=== PATIENT | male | born 1955 | race Hispanic/Latino ===

== ENCOUNTER 2018-08-29 23:41 | Emergency (ER) | payer OTHER | END 2018-08-29 23:56 | LOC: EDH 23:41 | DX: Z02.83 Encounter for blood-alcohol and blood-drug test (principal) ==

== ENCOUNTER 2018-12-27 05:50 | Day surgery (SDC) | payer OTHER ==
[2018-12-25 14:17] VITALS: BP 102/77
[2018-12-26] MEDS: CEFTRIAXONE SODIUM 1 GM IVP SCH (10:15)
[~2018-12-27] VITALS: Ht 174 cm; Wt 105.2 kg
[2018-12-27] VITALS (13 sets, daily range): BP systolic 118–148; BP diastolic 74–96
[~2018-12-27 05:50] MED LIST: TAMS-1 PO
[2018-12-27] MEDS ORDERED: LACTATED RINGERS 1000ML 1,000 ML IV ONE (06:33)
[2018-12-27] MEDS ORDERED: PROPOFOL 10 MG/ML 20ML VIAL IV ONE (07:04)
[2018-12-27] MEDS ORDERED: LIDOCAINE PF 2% 5ML ABBOJECT ONE (07:04)
[2018-12-27] MEDS ORDERED: FENTANYL CITRATE PF 50 MCG/1 ML 2ML VIAL ONE ×2 (07:05→08:12)
[2018-12-27] MEDS ORDERED: MIDAZOLAM HCL 1 MG/ML 2ML VIAL ONE (07:42)
[2018-12-27] MEDS: CEFTRIAXONE SODIUM 1 GM IVP SCH (07:45)
[2018-12-27] MEDS ORDERED: EPHEDRINE SULFATE 50 MG/ML AMPULE ONE (07:56)
[2018-12-27] MEDS ORDERED: OPIUM/BELLADONNA ALKALOIDS 1 EACH SUPP.RECT RC ONE (08:44)
[2018-12-27] MEDS ORDERED: PHENAZOPYRIDINE HCL 200 MG TABLET ONE (10:09)
== END 2018-12-27 10:40 | disposition home or self-care (01) ==
LOC: DAH 05:50
PROVIDERS: ATTEND Urology
DX: N40.1 Benign prostatic hyperplasia with lower urinary tract symptoms (principal); R35.1 Nocturia; F17.210 Nicotine dependence, cigarettes, uncomplicated; N28.81 Hypertrophy of kidney; Z98.890 Other specified postprocedural states
CPT/HCPCS: 52648; 88305; A4215; A4221; A4222; A4223; A4340; A4354; A4358; A4663; A4930; A5113; A6260; J0696; J2001; J2250; J2704; J3010 ×2; J3490; J7120 ×2

== ENCOUNTER 2021-11-19 11:01 | Emergency (ER) | payer MEDICARE, OTHER ==
[~2021-11-19] VITALS: Ht 167.6 cm; Wt 102.1 kg
[2021-11-19 11:13] VITALS: BP 129/75
[2021-11-19] MEDS ORDERED: D-ME1POW16 PO (12:26)
[2021-11-19] MEDS ORDERED: IBUP-2071 PO (12:26)
[2021-11-19] MEDS ORDERED: OSEL75 PO (12:26)
[2021-11-19] MEDS ORDERED: ACETAMINOPHEN 500 MG TABLET PO ONE (12:30)
[2021-11-19] MEDS ORDERED: OSELTAMIVIR PHOSPHATE 75 MG CAP PO SCH (12:30)
== END 2021-11-19 12:31 | disposition home or self-care (01) ==
LOC: EDH 11:01
DX: J10.1 Influenza due to other identified influenza virus with other respiratory manifestations (principal); Z20.822 Contact with and (suspected) exposure to COVID-19; I10 Essential (primary) hypertension; Z90.49 Acquired absence of other specified parts of digestive tract; Z98.890 Other specified postprocedural states
CPT/HCPCS: 99283; 87635; 87804 ×2; C9803

== ENCOUNTER 2022-08-26 14:58 | Inpatient (IN) | payer MEDICARE, OTHER ==
[~2022-08-26] VITALS: Ht 167.6 cm; Wt 111.1 kg
[~2022-08-26 14:58] MED LIST changes: +D-ME1POW16 PO; +IBUP-2071 PO; +OSEL75 PO
[2022-08-26] MEDS ORDERED: LACTATED RINGERS IV ONE (15:30)
[2022-08-26 15:40] LABS: BILIRUBIN,URINE NEGATIVE (NEGATIVE); COLOR,URINE YELLOW (YELLOW); GLUCOSE, URINE (UA) NEGATIVE (NEGATIVE); KETONES,URINE NEGATIVE (NEGATIVE); LEUKOCYTE ESTERASE ,URINE 500 Leu/uL (NEGATIVE); NITRATE,URINE NEGATIVE (NEGATIVE); OCCULT BLOOD,URINE LARGE (NEGATIVE); PH,URINE 5.5 (5.0-8.0); PROTEIN,URINE 300 mg/dL (NEGATIVE); UROBILINOGEN,URINE 3 mg/dL (0.2-1.0)
[2022-08-26 15:44] LABS: APPEARANCE,URINE CLOUDY (CLEAR)
[2022-08-26 15:49] LABS: BACTERIA,URINE MOD /HPF (None Seen); MUCUS,URINE MANY LPF (None Seen); RBC,URINE TNTC /HPF (0-1); SQUAMOUS EPITHELIAL CELL,UR FEW /HPF (0-2); WBC,URINE TNTC /HPF (0-1)
[2022-08-26 15:52] LABS: BASOPHILS % (AUTO) 0.6 % (0.0-5.0); EOSINOPHILS % (AUTO) 3.4 % (0.0-8.0); LYMPHOCYTES % (AUTO) 16.1 % (21.0-51.0); MEAN CORPUSCULAR HGB CONC 33.1 g/dL (32.0-36.0); MEAN CORPUSCULAR VOLUME 84.6 fL (79-99); MONOCYTES % (AUTO) 8.6 % (3.0-13.0); NEUTROPHILS % (AUTO) 69.8 % (40.0-77.0); PLATELET COUNT (AUTO) 230 K/uL (130-400); RED BLOOD CELL COUNT(AUTO) 5.32 MIL/uL (4.50-6.20); RED CELL DISTRIBUTION WIDTH 13.5 % (11.0-15.5); WHITE BLOOD COUNT (AUTO) 14.1 K/uL (4.8-10.8)
[2022-08-26 16:03] LABS: CREATININE 2.4 mg/dL (0.5-1.5); POTASSIUM 4.3 mmol/L (3.5-5.1)
[2022-08-26 16:12] LABS: MAGNESIUM 1.9 mg/dL (1.80-2.40); TOTAL PROTEIN, SERUM 7.6 g/dL (6.0-8.3)
[2022-08-26] MEDS ORDERED: CEFTRIAXONE 1G VIAL IVPB ONE (17:30)
[2022-08-26] MEDS ORDERED: ONDANSETRON 4MG INJ IVP PRN (20:00)
[2022-08-26] MEDS: CEFTRIAXONE 1G VIAL IVPB SCH (20:00)
[2022-08-26] MEDS ORDERED: ACETAMINOPHEN 325 MG TAB PO PRN (20:00)
[2022-08-26] MEDS: HEPARIN 5,000 UNIT VIAL SQ SCH (20:35)
[2022-08-26] MEDS: 0.9%NACL 1000ML 1,000 ML IV SCH (20:35)
[2022-08-26] MEDS ORDERED: ROSU5TAB12 PO (21:41)
[2022-08-26] MEDS ORDERED: IMIP50TA6 PO (21:42)
[2022-08-26] MEDS ORDERED: AMLO1CAP6 PO (21:43)
[2022-08-26 22:30] VITALS: O2SAT 99
[2022-08-26] MEDS ORDERED: IBUP-2077 PO (22:43)
[2022-08-26 23:00] VITALS: BP 124/75; PULSE 87; RESP 19
[2022-08-27] VITALS (7 sets, daily range): BP systolic 93–114; BP diastolic 70–76; PULSE 61–90; RESP 16–24; O2SAT 95
[2022-08-27 04:13] LABS: BASOPHILS % (AUTO) 0.6 % (0.0-5.0); EOSINOPHILS % (AUTO) 6.5 % (0.0-8.0); HEMATOCRIT 41.1 % (42-54); LYMPHOCYTES % (AUTO) 23.1 % (21.0-51.0); MEAN CORPUSCULAR HEMOGLOBIN 28.1 pg (27.0-33.0); MEAN CORPUSCULAR HGB CONC 32.4 g/dL (32.0-36.0); MEAN CORPUSCULAR VOLUME 86.7 fL (79-99); MONOCYTES % (AUTO) 9.2 % (3.0-13.0); NEUTROPHILS % (AUTO) 59.8 % (40.0-77.0); PLATELET COUNT (AUTO) 190 K/uL (130-400); RED BLOOD CELL COUNT(AUTO) 4.74 MIL/uL (4.50-6.20); RED CELL DISTRIBUTION WIDTH 13.5 % (11.0-15.5); WHITE BLOOD COUNT (AUTO) 10.5 K/uL (4.8-10.8)
[2022-08-27 04:28] LABS: CREATININE 1.3 mg/dL (0.5-1.5); MAGNESIUM 1.8 mg/dL (1.80-2.40); POTASSIUM 4.1 mmol/L (3.5-5.1)
[2022-08-27] MEDS: HEPARIN 5,000 UNIT VIAL SQ SCH ×2 (09:18→20:35)
[2022-08-27] MEDS: 0.9%NACL 1000ML 1,000 ML IV SCH ×2 (12:13→22:40)
[2022-08-27] MEDS: CEFTRIAXONE 1G VIAL IVPB SCH (20:24)
[2022-08-27] MEDS: ATORVASTATIN 20 MG TABLET PO SCH (20:24)
[2022-08-27] MEDS: AMITRIPTYLINE 25 MG TABLET PO SCH (20:24)
[2022-08-27] MEDS: AMLODIPINE-BENAZEPRIL 5-20 MG PO SCH (20:49)
[2022-08-27] MEDS ORDERED: NON-FORMULARY MEDICATION 1 EACH (Rosuvastatin Calcium 5 MG) PO SCH (21:00)
[2022-08-28] VITALS (7 sets, daily range): BP systolic 111–135; BP diastolic 70–79; PULSE 77–96; RESP 18–22; O2SAT 94–100
[2022-08-28] MEDS: 0.9%NACL 1000ML 1,000 ML IV SCH (06:03)
[2022-08-28] MEDS: HEPARIN 5,000 UNIT VIAL SQ SCH ×2 (09:27→20:36)
[2022-08-28] MEDS: CEFTRIAXONE 1G VIAL IVPB SCH (20:35)
[2022-08-28] MEDS: AMLODIPINE-BENAZEPRIL 5-20 MG PO SCH (20:36)
[2022-08-28] MEDS: AMITRIPTYLINE 25 MG TABLET PO SCH (20:36)
[2022-08-28] MEDS: ATORVASTATIN 20 MG TABLET PO SCH (20:37)
[2022-08-29 04:00] VITALS: BP 121/76; PULSE 78; RESP 19
[2022-08-29 05:17] LABS: HEMATOCRIT 39.9 % (42-54); MEAN CORPUSCULAR HGB CONC 32.8 g/dL (32.0-36.0); MEAN CORPUSCULAR VOLUME 85.3 fL (79-99); RED BLOOD CELL COUNT(AUTO) 4.68 MIL/uL (4.50-6.20); RED CELL DISTRIBUTION WIDTH 13.4 % (11.0-15.5); WHITE BLOOD COUNT (AUTO) 7.4 K/uL (4.8-10.8)
[2022-08-29 05:32] LABS: CREATININE 0.9 mg/dL (0.5-1.5); POTASSIUM 4.3 mmol/L (3.5-5.1)
[2022-08-29 07:50] VITALS: O2SAT 96
[2022-08-29 07:52] VITALS: BP 140/75; PULSE 85; RESP 18
[2022-08-29] MEDS: HEPARIN 5,000 UNIT VIAL SQ SCH ×2 (07:58→20:05)
[2022-08-29 10:27] LABS: INR 0.93 (0.85-1.15); PROTHROMBIN TIME 10.7 SEC (9.6-11.6)
[2022-08-29 12:00] VITALS: BP 123/78; PULSE 80; RESP 18
[2022-08-29] MEDS: 0.9%NACL 1000ML 1,000 ML IV SCH ×2 (14:40→20:04)
[2022-08-29 16:00] VITALS: BP 127/79; PULSE 87; RESP 18
[2022-08-29 20:00] VITALS: BP 126/71; PULSE 77; RESP 19; O2SAT 95
[2022-08-29] MEDS: AMLODIPINE-BENAZEPRIL 5-20 MG PO SCH (20:04)
[2022-08-29] MEDS: AMITRIPTYLINE 25 MG TABLET PO SCH (20:04)
[2022-08-29] MEDS: CEFTRIAXONE 1G VIAL IVPB SCH (20:04)
[2022-08-29] MEDS: ATORVASTATIN 20 MG TABLET PO SCH (20:04)
[2022-08-30] VITALS: BP 134/80; PULSE 77; RESP 19
[2022-08-30 04:00] VITALS: BP 135/82; PULSE 72; RESP 19
[2022-08-30 07:57] VITALS: BP 139/95; PULSE 88; RESP 18
[2022-08-30 08:30] VITALS: O2SAT 96
[2022-08-30] MEDS: HEPARIN 5,000 UNIT VIAL SQ SCH (09:13)
[2022-08-30 11:31] VITALS: BP 121/80; PULSE 78; RESP 18
== END 2022-08-30 16:30 | disposition home or self-care (01) | DRG 683 ==
LOC: EDH 14:58 → EDHIP 19:52 → 3CH 22:22
PROVIDERS: ADMIT Internal Medicine Infectious Disease; ATTEND Internal Medicine Infectious Disease
DX: N17.9 Acute kidney failure, unspecified (principal); N30.00 Acute cystitis without hematuria; B96.89 Other specified bacterial agents as the cause of diseases classified elsewhere; E86.0 Dehydration; E66.9 Obesity, unspecified; I10 Essential (primary) hypertension; Z90.49 Acquired absence of other specified parts of digestive tract; Z68.39 Body mass index [BMI] 39.0-39.9, adult; Z79.899 Other long term (current) drug therapy
CPT/HCPCS: 36415; 71045; 74176; 80048; 80053; 81001; 82550; 83605; 83735; 83874; 84484; 85025; 85027; 85610; 87077; 87088; 87186; 93005; G0378; J0696; J1644; J7030

== ENCOUNTER 2023-10-23 08:04 | Emergency (ER) | payer MEDICARE, OTHER ==
[~2023-10-23] VITALS: Ht 170.2 cm; Wt 123.8 kg
[~2023-10-23 08:04] MED LIST changes: +AMLO1CAP6 PO; +BENZ-226 PO; -D-ME1POW16 PO; -OSEL75 PO; +ROSU5TAB43 PO; -TAMS-1 PO
[2023-10-23 08:31] LABS: BASOPHILS # (AUTO) 0.06 K/uL (0.00-0.20); BASOPHILS % (AUTO) 0.5 % (0.0-5.0); EOSINOPHILS # (AUTO) 0.11 K/uL (0.00-0.70); HEMATOCRIT 47.9 % (42-54); IMMATURE GRANULOCYTE ABSOLUTE 0.22 K/uL (0-1); LYMPHOCYTES # (AUTO) 1.8 K/uL (1.0-4.8); LYMPHOCYTES % (AUTO) 16.8 % (21.0-51.0); MEAN CORPUSCULAR HEMOGLOBIN 28.9 pg (27.0-33.0); MEAN CORPUSCULAR VOLUME 87.6 fL (79-99); MONOCYTES # (AUTO) 0.7 K/uL (0.1-1.0); NEUTROPHILS % (AUTO) 73.7 % (40.0-77.0); PLATELET COUNT (AUTO) 212 K/uL (130-400); RED BLOOD CELL COUNT(AUTO) 5.47 MIL/uL (4.50-6.20); RED CELL DISTRIBUTION WIDTH 15.2 % (11.0-15.5); WHITE BLOOD COUNT (AUTO) 10.9 K/uL (4.8-10.8)
[2023-10-23 08:40] LABS: CREATININE 1.1 mg/dL (0.5-1.3); POTASSIUM 4.5 mmol/L (3.5-5.1)
[2023-10-23 08:44] LABS: ALBUMIN 3.7 g/dL (3.5-5.0); BILIRUBIN,TOTAL 0.4 mg/dL (0.2-1.0); TOTAL PROTEIN, SERUM 7.7 g/dL (6.0-8.3)
[2023-10-23 08:53] LABS: APPEARANCE,URINE CLEAR (CLEAR); BILIRUBIN,URINE NEGATIVE (NEGATIVE); COLOR,URINE LIGHT-YELLOW (YELLOW); GLUCOSE, URINE (UA) NEGATIVE (NEGATIVE); KETONES,URINE NEGATIVE (NEGATIVE); LEUKOCYTE ESTERASE ,URINE NEGATIVE Leu/uL (NEGATIVE); NITRATE,URINE NEGATIVE (NEGATIVE); OCCULT BLOOD,URINE NEGATIVE (NEGATIVE); PH,URINE 5.5 (5.0-8.0); PROTEIN,URINE 10 mg/dL (NEGATIVE); UROBILINOGEN,URINE 0.2 mg/dL (0.2-1.0)
[2023-10-23 08:54] LABS: ADD UA MICROSCOPIC YES
[2023-10-23 09:06] LABS: MUCUS,URINE RARE LPF (None Seen); SQUAMOUS EPITHELIAL CELL,UR RARE /HPF (0-2)
[2023-10-23] MEDS: MAGNESIUM HYDROXIDE 30 ML/UDCUP PO ONE (09:22)
[2023-10-23] MEDS: BisaCODYL 5 MG TABLET.DR PO ONE (09:22)
[2023-10-23 10:03] VITALS: BP 118/75; PULSE 69; RESP 20; TEMP 97.5; O2SAT 96
[2023-10-23] MEDS ORDERED: LACT10SO9 PO (11:13)
[2023-10-23] MEDS ORDERED: PSYL3.4P5 PO (11:13)
== END 2023-10-23 11:19 | disposition home or self-care (01) ==
LOC: EDH 08:04
DX: K59.00 Constipation, unspecified (principal); E66.9 Obesity, unspecified; E78.00 Pure hypercholesterolemia, unspecified; I10 Essential (primary) hypertension; F10.10 Alcohol abuse, uncomplicated; F17.200 Nicotine dependence, unspecified, uncomplicated; Z79.899 Other long term (current) drug therapy; Z90.49 Acquired absence of other specified parts of digestive tract; Z98.890 Other specified postprocedural states
CPT/HCPCS: 36415; 80053; 81001; 83690; 85025

== ENCOUNTER 2024-03-30 21:29 | Emergency (ER) | payer MEDICARE, OTHER ==
[~2024-03-30] VITALS: Ht 167.6 cm; Wt 127.0 kg
[~2024-03-30 21:29] MED LIST changes: +LACT10SO9 PO; +PSYL3.4P5 PO; -ROSU5TAB43 PO; +ROSU5TAB51 PO
[2024-03-30] MEDS: ketOROlac 60 MG VIAL (30MG/ML) IM ONE (21:56)
[2024-03-30] MEDS: dexaMETHasone SOD PHOSPHATE 4 MG/ML 1ML VIAL IM ONE (21:56)
--- NOTE | 2024-03-30 22:05 | ERN ---
ED Note History of Present Illness Stated Complaint: RT KNEE PAIN Chief Complaint: Knee Injury/Swelling Time Seen by MD: 21:34 Time Seen by Midlevel: 21:38 Dictation: PATIENT IS A 68-YEAR-OLD MALE COMING IN TODAY WITH COMPLAINTS OF RIGHT KNEE PAIN HE HAS HAD FOR 15 YEARS THAT HAS GOTTEN PROGRESSIVELY WORSE. HE SAID HE WENT TO A DOCTOR YEARS AGO AND WAS TOLD THAT HE WAS TOO YOUNG TO HAVE ARTIFICIAL KNEES PUT IN. HE STATES WHEN HE SEES HIS PRIMARY CARE DOCTOR, HE WILL PRESCRIBED MEDICATIONS HOWEVER HE HAS NEVER HAD ANY DEFINITIVE TREATMENT. HE DID SHOW ME THAT HE HAS AN APPOINTMENT MADE WITH /ORTHOPEDIC SURGEON AT [facility] IN [place] ON SUNDAY. HE HAS HAD NO FEVER NO CHILLS NO NAUSEA VOMITING. HE STATES HE IS SEEKING PAIN MANAGEMENT. 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 Allergies: Coded Allergies: No Known Drug Allergies (Verified Allergy, Unknown, 12/26/18) adhesive tape (Unverified Allergy, Unknown, 08/26/22) BLISTERS Home Meds Active Scripts Lactulose (Lactulose) 20 Gram/30 Ml Solution, 20 GM PO DAILYDINNER for constipation, #150 ML Prov:MARIBELL SHEPARD MD 10/23/23 Psyllium Husk/Aspartame (Metamucil Fiber Singles Packet) 3.4 Gram Powd.pack, 3.4 GM PO DAILY, #300 GM Prov:MARIBELL SHEPARD MD 10/23/23 Ibuprofen (Ibuprofen) 800 Mg Tablet, 800 MG PO TIDP PRN for PAIN, #60 TAB Prov:KEY FREDERICK 11/19/21 Reported Medications Benzonatate (Benzonatate) 100 Mg Capsule, 100 MG PO TID PRN for COUGH, CAP 05/12/23 Amlodipine Besylate/Benazepril (Lotrel 5-20 mg Capsule) 1 Each Capsule, 1 EACH PO PM, CAP 08/26/22 Rosuvastatin Calcium (Rosuvastatin Calcium) 5 Mg Tablet, 5 MG PO PM, TAB 08/26/22 Past Medical History Past Medical History: High Cholesterol, Hypertension, Other (DEGENERATIVE JOINT DISEASE BILATERAL KNEE) Additional Past Medical Hx: Obesity Surgical History: Cholecystectomy, Other Surgical History Other: ABD EXPLOATORY SX, BACK SX; CBD stent placement, RT SHOULDER, RT KNEE X 2 Family History: Negative Social History: Smokers, ETOH, Lives with family RN Note Reviewed/Agreed w/PFSH: Yes Review of System Dictation CONSTITUTIONAL: NEGATIVE EXCEPT FOR HPI HEAD/FACE: NEGATIVE EXCEPT FOR HPI EENT: NEGATIVE EXCEPT FOR HPI RESPIRATORY: NEGATIVE EXCEPT FOR HPI GASTROINTESTINAL/ABDOMINAL: NEGATIVE EXCEPT FOR HPI GENITOURINARY: NEGATIVE EXCEPT FOR HPI MUSCULOSKELETAL: NEGATIVE EXCEPT FOR HPI BILATERAL KNEE PAIN GREATER ON THE RI GHT INTEGUMENTARY: NEGATIVE EXCEPT FOR HPI NEUROLOGICAL/PSYCH: NEGATIVE EXCEPT FOR HPI HEMATOLOGIC/LYMPHATIC: NEGATIVE EXCEPT FOR HPI ALL SYSTEMS NEGATIVE, EXCEPT NOTED ABOVE. 13 POINT REVIEW OF SYSTEMS ASSESSED AND ALL NEGATIVE EXCEPT FOR ABOVE. Initial Vital Sign VS Vital Signs Date Time Temp Pulse Resp B/P (MAP) Pulse Ox O2 Delivery O2 Flow Rate FiO2 03/30/24 21:31 98.1 80 18 135/94 97 Room Air 03/30/24 21:37 0 21 Physical Exam Dictation VITAL SIGNS REVIEWED GENERAL APPEARANCE: ALERT, ORIENTED X 3, MODERATE ACUTE DISTRESS, WELL DEVELOPED, NOURISHED. MORBID OBESE HEAD AND FACE: NON-TRAUMATIC. EYES: PERRL, PINK CONJUNCTIVAS, EYELID NO TRAUMA, ANTERIOR CHAMBER WITH ARCUS SENILIS. EARS: PINNAS INTACT AND NO SIGNS OF TRAUMA OR ERYTHEMA EAR CANALS CLEAR AND NO DISCHARGE TM NO ERYTHEMA NOSE: NO DISCHARGE, NO BLEEDING. OROPHARYNX: MOUTH NORMAL, TONGUE PINK, PHARYNX CLEAR,NO ERYTHEMA, TONSILS NO EXUDATES, NO ABSCESSES NOTED, MUCOUS MEMBRANE MOIST NECK: SUPPLE, NON-TENDER, NO THYROMEGALY, NO MASSES, NO JVD, NO BRUITS BREAST:DEFERRED CHEST:NO TENDERNESS, NO CREPITUS, NO PARADOXICAL MOVEMENT, NO RETRACTIONS LUNGS:CLEAR, WELL-VENTILATED, SYMMETRIC, NO RALES, NO WHEEZING, NO RHONCHI, NO STRIDOR, GOOD BREATH SOUNDS BILATERALLY HEART: REGULAR RATE, REGULAR RHYTHM, NO MURMUR, NO GALLOPS VASCULAR: NO PERIPHERAL EDEMA, ABDOMEN: SOFT, POSITIVE BOWEL SOUNDS, NONDISTENDED, NO GUARDING, NONTENDER, NO REBOUND, NO MASSES NO HEPATOMEGALY, NO SPLENOMEGALY, NO PATEL'S SIGN, NO HERNIAS. RECTAL: DEFERRED GENITAL: DEFERRED NEUROLOGICAL: NORMAL SPEECH, MOTOR FUNCTION INTACT, SENSORY FUNCTION INTACT MUSCULOSKELETAL: NECK NONTENDER, FULL RANGE OF MOTION, BACK NONTENDER, FULL RANGE OF MOTION, EXTREMITIES: DIFFUSE ANTERIOR RIGHT KNEE TENDERNESS. NO EFFUSION, NO ERYTHEMA. DEGENERATIVE CHANGES NOTED TO BOTH KNEES. FULL RANGE OF MOTION WITH PAIN BILATERALLY SKIN: COLOR PINK, DRY, NO TURGOR, NO RASH, NO LACERATIONS, NO ABRASIONS, NO CONTUSIONS. LYMPHATIC: DEFERRED Results (Laboratory/Radiology) Laboratory/Radiology 2245/SEVERE DJD RIGHT KNEE ON X-RAY Labs Reviewed?: Yes ED Course ED Course Orders Procedure Category Date Status Time Knee 3vws Rt RAD 03/30/24 Taken 21:42 Ketorolac 60mg/2ml PHA 03/30/24 Complete (Toradol 60mg/2ml) 22:00 Dexamethasone 4mg/Ml PHA 03/30/24 Complete 1ml Vial (Dexametha 22:00 Current Medications Medications (Trade) Dose Ordered Sig/Romeo Route PRN Reason Start Time Stop Time Status Last Admin Dose Admin Dexamethasone Sodium Phosphate (dexaMETHasone 4MG/ML 1ML VIAL) 8 mg ONCE ONCE IM 03/30/24 22:00 03/30/24 22:01 DC 03/30/24 21:56 Ketorolac Tromethamine (toRADol 60MG/ 2ML) 60 mg ONCE ONCE IM 03/30/24 22:00 03/30/24 22:01 DC 03/30/24 21:56 Vital Signs Date Time Temp Pulse Resp B/P (MAP) Pulse Ox O2 Delivery O2 Flow Rate FiO2 03/30/24 21:37 98.1 89 20 131/56 98 Room Air* 0 21 03/30/24 21:31 98.1 80 18 135/94 97 Room Air 5/PATIENT STATES PAIN IS IMPROVING AFTER TREATMENT WITH TORADOL AND DECADRON. DISCHARGED HOME WITH IBUPROFEN AND MEDROL DOSEPAK TOLD FOLLOW UP WITH ORTHOPEDIC SURGEON ON SUNDAY Medical Decision Making MDM MEDICAL DISCHARGE MAKING BASED ON X-RAY OF RIGHT KNEE AND EMPIRIC TREATMENT FOR PAIN. X-RAY DEMONSTRATES SEVERE DJD DISCHARGED HOME WITH A IBUPROFEN AND MEDROL DOSEPAK NO WORK UNTIL CLEARED BY HIS ORTHOPEDIC SURGEON ON SUNDAY. DX & DISP Disposition: Discharge Departure Impression: Primary Impression: Right knee DJD Condition: Stable Scripts Ibuprofen (Ibuprofen) 800 Mg Tablet 800 MG PO Q8H PRN for PAIN, #30 TAB 0 Refills Prov: ANSELMO JOHNSON [employer] 03/30/24 Methylprednisolone (Medrol) 4 Mg Tab.ds.pk 1 TAB PO AD for 6 Days, #21 TAB 0 Refills 6 on day 1 then reduce by one tablet daily until gone Prov: ANSELMO JOHNSON [employer] 03/30/24 Additional Instructions: FOLLOW-UP WITH PRIMARY CARE PROVIDER IN 1 TO 2 DAYS. TAKE MEDICATIONS DIRECTED HERE IN THE EMERGENCY ROOM. OKAY TO CONTINUE HOME MEDICATIONS UNLESS OTHERWISE DISCUSSED DURING YOUR VISIT IN THE EMERGENCY ROOM TODAY. RETURN TO YOUR NEAREST EMERGENCY ROOM IF SYMPTOMS WORSEN OR IF THERE IS NO IMPROVEMENT. CALL 911 IF YOU NEED IMMEDIATE ASSISTANCE. TAKE TYLENOL OR MOTRIN [id number] NEEDED AND IF NO CONTRAINDICATIONS ARE PRESENT. INCREASE ORAL HYDRATION. A WOUND CULTURE OR URINE CULTURE WAS ORDERED HERE IN THE EMERGENCY ROOM DEPARTMENT PLEASE FOLLOW-UP WITH PRIMARY CARE PROVIDER AND ADVISE THEM TO GET REPEAT PORTS FROM OUR FACILITY. IF YOU HAD ANY FERN WRAP/SPLINTS THAT WERE APPLIED HERE, PLEASE DO NOT REMOVE THEM UNTIL YOU SEE YOUR PRIMARY CARE OR SPECIALTY. TAKE MOTRIN EVERY8 HOURS WITH FOOD FOR THE NEXT TWO DAYS. TAKE MEDROL DOSEPAK DIRECTED UNTIL GONE. NO WORK UNTIL CLEARED BY YOUR ORTHOPEDIC SURGEON ON SUNDAY. Referrals: CAROL SANTANA (PCP) Time of Disposition: 22:48 I have reviewed the case, and I agree with, Diagnosis and Plan ANSELMO JOHNSON NP Mar 30, 2024 22:04
[2024-03-30] MEDS ORDERED: IBUP-2071 PO (22:51)
[2024-03-30] MEDS ORDERED: METH4TAB3 PO (22:51)
[2024-03-30 22:57] VITALS: BP 127/59; PULSE 87; RESP 20; TEMP 98.1; O2SAT 97
--- NOTE | 2024-03-30 22:57 | HMCIMG ---
KNEE 3VWS RT HISTORY: Knee pain COMPARISON: None TECHNIQUE: 3 images of right knee were obtained. FINDINGS: There is no acute displaced fracture or dislocation. Degenerative changes are seen. IMPRESSION: 1. Findings as described above.
== END 2024-03-30 23:00 | disposition home or self-care (01) ==
LOC: EDH 21:29
DX: M17.11 Unilateral primary osteoarthritis, right knee (principal); E78.00 Pure hypercholesterolemia, unspecified; I10 Essential (primary) hypertension; E66.9 Obesity, unspecified; F17.200 Nicotine dependence, unspecified, uncomplicated; Z90.49 Acquired absence of other specified parts of digestive tract
CPT/HCPCS: 99284; 73562; 96372 ×2; J1100; J1885